=== PATIENT | male | born 1955 | race Caucasian/White ===

== ENCOUNTER 2023-10-11 04:39 | Emergency (ER) | payer OTHER, MEDICAID ==
[~2023-10-11] VITALS: Ht 167.6 cm; Wt 72.0 kg
[2023-10-11 04:43] VITALS: O2SAT 86
[2023-10-11 04:50] VITALS: TEMP 98.3
[2023-10-11] MEDS ORDERED: NOREPINEPHRINE 8MG/250ML PMX 250 ML IV STA (04:50)
[2023-10-11] MEDS ORDERED: MORPHINE SULFATE 4 MG/ML CPJ (NOT FOR IM USE) IV STA (04:50)
[2023-10-11] MEDS ORDERED: ONDANSETRON HCL 4MG/2ML INJ IV STA (04:50)
[2023-10-11] MEDS ORDERED: SODIUM CHLORIDE 0.9% 1,000 ML IV ONE (05:00)
[2023-10-11] MEDS ORDERED: VANCOMYCIN 1G PREMIX 200 ML IV ONE (05:00)
[2023-10-11] MEDS ORDERED: ETOMIDATE 2MG/ML 10ML VIAL IV ONE (05:00)
[2023-10-11] MEDS ORDERED: PIPERACILLIN/TAZ 3.375G PREMIX 50 ML IV ONE (05:00)
[2023-10-11] MEDS ORDERED: SUCCINYLCHOLINE CHLORIDE 200MG/10ML IV ONE (05:00)
[2023-10-11] MEDS ORDERED: PROPOFOL 10MG/ML 100ML 100 ML IV ONE (05:00)
[2023-10-11] MEDS ORDERED: MIDAZOLAM HCL 100 MG in DEXT 5% WATER 80 ML IV ONE (05:00)
[2023-10-11] MEDS ORDERED: MIDAZOLAM HCL 100 MG in SODIUM CHLORIDE 0.9% 100 ML IV PRN (05:15)
[2023-10-11 05:22] VITALS: PULSE 70; RESP 16
[2023-10-11 06:24] LABS: HEMOGLOBIN. 9.6 g/dL (14.0-18.0); MEAN CORPUSCULAR HEMOGLOBIN 33.1 pg (28.0-32.0); MEAN CORPUSCULAR HGB CONC 30.8 g/dL (31.0-37.0); MEAN CORPUSCULAR VOLUME 107.6 fL (80.0-94.0); RED BLOOD CELL COUNT 2.89 mill/uL (4.7-6.1); RED CELL DISTRIBUTION WIDTH 22.3 % (11.6-14.6)
[2023-10-11 06:26] LABS: ALANINE AMINOTRANSFERASE < 7 IU/L (10-49); ALBUMIN 1.9 g/dL (3.2-4.8); ASPARTATE AMINOTRANSFERASE 18 IU/L (<34); CALCIUM 8.1 mg/dL (8.7-10.4); CARBON DIOXIDE 22 mEq/L (21-32); CHLORIDE 101 mEq/L (98-107); CREATININE 4.1 mg/dL (0.6-1.3); GLUCOSE 64 mg/dL (70-105); PROTEIN TOTAL 5.2 g/dL (6.0-8.3); SODIUM 135 mEq/L (136-145); UREA NITROGEN BLOOD 37 mg/dL (9-23)
[2023-10-11] MEDS ORDERED: VASOPRESSIN 20 UNIT in SODIUM CHLORIDE 0.9% 99 ML IV STA ×2 (06:28→06:35)
[2023-10-11] MEDS ORDERED: EPINEPHRINE 5 MG in SODIUM CHLORIDE 0.9% 245 ML IV NR ×2 (06:28→06:45)
[2023-10-11] MEDS ORDERED: SODIUM CHLORIDE 0.9% 1,000 ML IV STA (06:28)
[2023-10-11 06:34] LABS: DIFFERENTIAL COMMENT 1
[2023-10-11] MEDS ORDERED: DOCUSATE SODIUM 100MG CAPSULE PO PRN (06:45)
[2023-10-11] MEDS ORDERED: GUAIFENESIN 200MG/10ML SUGAR FREE UDC PO PRN (06:45)
[2023-10-11] MEDS ORDERED: ACETAMINOPHEN 325MG TABLET PO PRN ×2 (06:45)
[2023-10-11] MEDS ORDERED: MEROPENEM 1,000 MG in SODIUM CHLORIDE 0.9% 100 ML IV SCH (06:45)
[2023-10-11] MEDS ORDERED: NITROGLYCERIN 0.4MG TABLET SL SL PRN (06:45)
[2023-10-11] MEDS ORDERED: IPRATROPIUM/ALBUTEROL 0.5-3(2.5)MG/3ML NEB HHN SCH (06:45)
[2023-10-11] MEDS ORDERED: ENOXAPARIN 40MG/0.4ML SYR SUBCUT SCH (06:45)
[2023-10-11] MEDS ORDERED: DEXT 5%/LACTATED RINGERS 1,000 ML IV SCH (06:45)
[2023-10-11] MEDS ORDERED: MAGNESIUM/ALUMINUM HYDROXIDE/SIMETHICONE 30ML UDC PO PRN (06:45)
[2023-10-11] MEDS ORDERED: CLONIDINE 0.1MG TABLET PO PRN (06:45)
[2023-10-11] MEDS ORDERED: IPRATROPIUM/ALBUTEROL 0.5-3(2.5)MG/3ML NEB NEB PRN (06:45)
[2023-10-11] MEDS ORDERED: ONDANSETRON HCL 4MG/2ML INJ IV PRN (06:45)
[2023-10-11] MEDS ORDERED: NOREPINEPHRINE 8MG/250ML PMX 242 ML IV PRN (06:45)
[2023-10-11] MEDS ORDERED: NA PHOS,M-B/NA PHOS,DI-BA ENEMA 118ML PR PRN (06:45)
[2023-10-11 06:46] LABS: INR 2.1; PROTHROMBIN TIME 21.3 sec (9.6-11.0)
[2023-10-11 06:47] LABS: BG BASE EXCESS -3.9 mmol/L (-2.0-2.0); BG CARBOXYHEMOGLOBIN 0.7 % (0.5-1.5); BG DEOXYHEMOGLOBIN 1.5 % (0.0-5.0); BG FRACTION INSPIRED OXYGEN 100; BG HCO3 ACT 23.3 mmol/L (22.0-26.0); BG METHEMOGLOBIN 0.3 % (0.0-1.5); BG OXYGEN SATURATION 98.5 % (92.0-98.5); BG OXYHEMOGLOBIN 97.5 % (94.0-97.0); BG PCO2 52.6 mmHg (35.0-45.0); BG PH 7.264 (7.350-7.450); BG PO2 190.2 mmHg (75.0-100.0); BG TOTAL HEMOGLOBIN 10.2 g/dL (12.0-18.0); BG VENT MODE VENT - AC
[2023-10-11] MEDS ORDERED: MEROPENEM 1,000 MG in SODIUM CHLORIDE 0.9% 100 ML IV NR (07:00)
[2023-10-11 07:05] VITALS: BP 67/37
[2023-10-11 07:09] LABS: LACTIC ACID 5.6 mmol/L (0.4-2.0); TROPONIN I HIGH SENSITIVITY 148 ng/L (3.0-53)
[2023-10-11] MEDS ORDERED: DEXTROSE 10% WATER 250 ML IV ONE (07:15)
[2023-10-11 07:45] LABS: IRON 42 ug/dL (65-175); LDL CHOLESTEROL 8 mg/dL (5-100); T4 FREE 0.46 ng/dL (0.89-1.76); THYROID STIMULATING HORMONE 11.64 uIU/mL (0.55-4.78); TOTAL IRON BINDING CAPACITY 262 ug/dl (250-425); TRIGLYCERIDE 63 mg/dL (0-150)
[2023-10-11] MEDS ORDERED: MEROPENEM 500MG in NORMAL SALINE 50ML IV SCH (08:00)
[2023-10-11] MEDS ORDERED: VANCOMYCIN 1.5GM/250ML IVPB 250 ML IV NR (08:00)
[2023-10-11] MEDS ORDERED: VANCOMYCIN 500MG PREMIX 100 ML IV NR ×2 (08:00→13:00)
[2023-10-11 08:20] LABS: CHOLESTEROL < 25 mg/dL (<200); HDL CHOLESTEROL < 5 mg/dL (>55)
[2023-10-11 08:24] LABS: TROPONIN I HIGH SENSITIVITY 187 ng/L (3.0-53)
[2023-10-11] MEDS ORDERED: PANTOPRAZOLE SODIUM 40 MG/VIAL IV SCH (09:00)
[2023-10-11 09:52] LABS: PLATELET ESTIMATE NORMAL
[2023-10-11 09:53] LABS: ANISOCYTOSIS 2+
[2023-10-11 10:22] LABS: PLATELET 82 x1000/uL (130-400)
[2023-10-11 12:52] LABS: FOLIC ACID (FOLATE) SERUM 12.57 ng/mL (>5.38)
[2023-10-11 13:11] LABS: VITAMIN B12 SERUM > 2000 pg/mL (211-911)
== END 2023-10-11 11:21 ==
LOC: ER 04:39 → EDBEDREQ 06:03 → EDBEDREQTM 06:03 → CANBEDREQ 09:10 → ER 11:21
DX: J96.02 Acute respiratory failure with hypercapnia (principal); I46.9 Cardiac arrest, cause unspecified; N19 Unspecified kidney failure; E11.9 Type 2 diabetes mellitus without complications; E78.00 Pure hypercholesterolemia, unspecified; I10 Essential (primary) hypertension; F19.90 Other psychoactive substance use, unspecified, uncomplicated
CPT/HCPCS: 99285; 92950; 31500; 96365; 71045; 96361; 80061; 80053; 82607; 82746; 82962; 83036; 84439; 83540; 83550; 83605; 83690; 84443; 85025; 85610; 87040; 84484; 36415; 84145; 82805; 82375; 93005; 36600; J3490 ×3; J2704; J3370; J7050 ×2; J7030; 94002; J2185; J2250; J7060